=== PATIENT | male | born 1930 | race Caucasian/White ===

== ENCOUNTER 2016-03-24 11:35 | Observation (INO) ==
[2016-03-24] MEDS ORDERED: HYDROmorphone 2 MG/ML SYRINGE IV PRN (11:45)
[2016-03-24 13:18] LABS: Mean Cell Volume 97.8 fL (80.0-100.0); Mean Corpuscular HGB Conc 32.9 g/dL (31.0-36.0); Mean Corpuscular Hemoglobin 32.1 pg (26.0-34.0); Platelet Count 347 K/mcL (140-440); RBC 3.81 M/mcL (4.50-5.90); Red Cell Distribution Width 15.1 % (11.5-14.5)
[2016-03-24 13:36] LABS: C-Reactive Protein 1.8 mg/dl (0.0-0.8); Magnesium 1.9 mg/dL (1.6-2.5); Phosphorous 3.5 mg/dL (2.7-4.5)
[2016-03-24] MEDS: IPRATROPIUM/ALBUTEROL 3 ML AMPUL.NEB NEB SCH ×2 (13:37→18:12)
[2016-03-24] MEDS: 0.9 % SODIUM CHLORIDE 1,000 ML IV SCH (13:42)
[2016-03-24 13:43] LABS: ALT/SGPT 11 U/l (0-40); Albumin 3.5 gm/dL (3.2-5.2); Albumin/Globulin Ratio 2.1 (1.0-2.3); Alkaline Phosphatase 92 U/L (39-117); Blood Urea Nitrogen 24 mg/dl (8-23)
[2016-03-24] MEDS: 0.9 % SODIUM CHLORIDE 10 ML SYRINGE IV SCH ×2 (13:43→22:44)
[2016-03-24] MEDS ORDERED: ENOXAPARIN 40 MG/0.4 ML SYRINGE SQ SCH (14:00)
--- NOTE | 2016-03-24 14:14 | XRay Report ---
CLINICAL INFORMATION: COPD COMPARISON: 01/29/2016. FINDINGS: The heart is mildly enlarged, but unchanged. Ectatic thoracic aorta again noted. Remainder the mediastinum and pulmonary vessels are unremarkable. There is minor bibasilar atelectasis. Left diaphragm slightly elevated IMPRESSION: No acute disease - stable Interpreted and Authenticated by: Andre Bey 03/24/16
[2016-03-24] MEDS ORDERED: ENOXAPARIN 40 MG/0.4 ML SYRINGE SQ ONE (14:30)
[2016-03-24 15:10] LABS: Band Neutrophils % 1 % (0-10); Lymphocytes % 14 % (15-49); Monocytes % (Manual) 10 % (1-9); Platelet Estimate NORMAL (NORMAL); RBC Morphology NORMAL (NORMAL); Segmented Neutrophils % 75 % (38-78)
[2016-03-24] MEDS: SODIUM CHLORIDE 1 GM TABLET PO SCH (17:57)
[2016-03-24] MEDS: oxyCODONE HCL 5 MG TABLET PO PRN (19:28)
[2016-03-24] MEDS: TAMSULOSIN 0.4 MG CAPSULE PO SCH (19:30)
[2016-03-24] MEDS: DOCUSATE SODIUM 100 MG CAPSULE PO SCH (19:30)
[2016-03-25] MEDS: SODIUM CHLORIDE 1 GM TABLET PO SCH ×2 (00:42→06:05)
[2016-03-25] MEDS: IPRATROPIUM/ALBUTEROL 3 ML AMPUL.NEB NEB SCH ×5 (02:50→19:11)
[2016-03-25] MEDS: 0.9 % SODIUM CHLORIDE 1,000 ML IV SCH ×2 (02:51→14:26)
[2016-03-25] MEDS: 0.9 % SODIUM CHLORIDE 10 ML SYRINGE IV SCH ×2 (05:59→14:05)
[2016-03-25 06:09] LABS: Basophils # (Auto) 0 K/mcL (0.0-0.3); Basophils % (Auto) 0.3 % (0.0-2.0); Eosinophils # (Auto) 0.1 K/mcL (0.0-0.7); Eosinophils % (Auto) 1.4 % (0.0-7.0); Lymphocytes # (Auto) 1.2 K/mcL (1.5-4.8); Lymphocytes % (Auto) 16.3 % (15.5-49.0); Mean Cell Volume 98.6 fL (80.0-100.0); Mean Corpuscular HGB Conc 32.1 g/dL (31.0-36.0); Mean Corpuscular Hemoglobin 31.7 pg (26.0-34.0); Monocytes # (Auto) 0.5 K/mcL (0.1-0.9); Platelet Count 246 K/mcL (140-440); RBC 3.39 M/mcL (4.50-5.90); Red Cell Distribution Width 15.1 % (11.5-14.5)
[2016-03-25] MEDS: oxyCODONE HCL 5 MG TABLET PO PRN ×3 (06:09→21:29)
[2016-03-25 06:11] LABS: Appearance,Urine CLEAR; Bacteria,Urine 0 /hpf (0); Bilirubin,Urine NEG (NEG); Color,Urine YELLOW; Glucose,Urine (UA) NEGATIVE (NEG); Leukocyte Esterase,Urine 25 /uL (NEG); Mucus,Urine FEW /hpf (0); Nitrate,Urine NEG (NEG); Protein,Urine NEG (NEG); Specific Gravity,Urine 1.009 (1.000-1.035); Urine Blood 0.03 mg/dL (<0.03); Urine RBC 6 /hpf (0-1); Urine Squamous Epithelial Cell 0 /hpf (0-4); Urine WBC 3 /hpf (0-4); Urobilinogen,Urine NEG (NEG)
[2016-03-25 06:29] LABS: Blood Urea Nitrogen 17 mg/dl (8-23)
[2016-03-25] MEDS ORDERED: PANTOPRAZOLE 40 MG VIAL IV SCH (07:30)
[2016-03-25] MEDS ORDERED: cefTRIAXone 1 GM in DEXTROSE 5% IN WATER 50 ML IV ONE (08:00)
[2016-03-25] MEDS ORDERED: ASPIRIN 81 MG TAB.CHEW CHEWED SCH (09:00)
[2016-03-25] MEDS ORDERED: METOPROLOL TARTRATE 5 MG/5 ML VIAL IV ONE (13:55)
[2016-03-25] MEDS ORDERED: ePHEDrine 50 MG/ML AMPUL IV ONE (13:55)
[2016-03-25] MEDS ORDERED: fentaNYL 100 MCG/2 ML VIAL IV ONE (13:55)
[2016-03-25] MEDS ORDERED: KETAMINE 100 MG/ML ML IV ONE (13:55)
[2016-03-25] MEDS ORDERED: PHENYLEPHRINE 10 MG/ML VIAL IV ONE (13:55)
[2016-03-25] MEDS ORDERED: MIDAZOLAM 2 MG/2 ML VIAL IV ONE (13:55)
[2016-03-25] MEDS: DOCUSATE SODIUM 100 MG CAPSULE PO SCH ×2 (14:05→21:29)
[2016-03-25] MEDS: TAMSULOSIN 0.4 MG CAPSULE PO SCH ×2 (14:05→21:29)
[2016-03-25] MEDS ORDERED: fentaNYL 100 MCG/2 ML VIAL IV PRN (14:32)
[2016-03-25] MEDS ORDERED: FLUMAZENIL 0.1 MG/ML ML IV PRN (14:32)
[2016-03-25] MEDS ORDERED: METOPROLOL TARTRATE 5 MG/5 ML VIAL IV PRN (14:32)
[2016-03-25] MEDS ORDERED: NALOXONE HCL 0.4 MG/ML VIAL IV PRN (14:32)
[2016-03-25] MEDS ORDERED: IPRATROPIUM/ALBUTEROL 3 ML AMPUL.NEB NEB PRN (14:32)
[2016-03-25] MEDS ORDERED: ONDANSETRON 4 MG/2 ML VIAL IV PRN (14:32)
[2016-03-25] MEDS ORDERED: LACTATED RINGERS 250 ML IV PRN (14:32)
[2016-03-25] MEDS ORDERED: diphenhydrAMINE 50 MG/ML VIAL IV PRN (14:32)
[2016-03-25] MEDS ORDERED: BACITRACIN 50,000 UNIT VIAL IR ONE (14:41)
[2016-03-25] MEDS ORDERED: LACTATED RINGERS 1,000 ML IV SCH (14:45)
--- NOTE | 2016-03-25 16:05 | Brief Operative Note ---
Date of procedure: 03/25/16 Pre-op diagnosis: left inguinal hernia with partial colonic obstruction Post-op diagnosis: same Procedure: left inguinal hernia repair with mesh graft Grafts/Implants: Yes (SURGIMESH) Anesthesia: spinal Findings: LARGE HERNIA SAC WITH INDURATED AND EDEMATOUS SAC CONTAINING SEGMENT OF SIGMOID COLON Complications: none Surgeon: Leni Wright Estimated blood loss (cc): 10 Specimens Removed/Pathology: none sent Condition: stable Disposition: PACU
[2016-03-25] MEDS: HYDROmorphone 2 MG/ML SYRINGE IV PRN ×2 (16:54→19:32)
[2016-03-26] MEDS: IPRATROPIUM/ALBUTEROL 3 ML AMPUL.NEB NEB SCH ×4 (02:01→19:19)
[2016-03-26 06:17] LABS: Basophils # (Auto) 0 K/mcL (0.0-0.3); Basophils % (Auto) 0 % (0.0-2.0); Eosinophils # (Auto) 0 K/mcL (0.0-0.7); Eosinophils % (Auto) 0.2 % (0.0-7.0); Granulocytes % (Auto) 85.3 % (38.0-78.0); Lymphocytes # (Auto) 1.1 K/mcL (1.5-4.8); Lymphocytes % (Auto) 7.9 % (15.5-49.0); Mean Cell Volume 99.2 fL (80.0-100.0); Mean Corpuscular HGB Conc 32.3 g/dL (31.0-36.0); Monocytes # (Auto) 0.9 K/mcL (0.1-0.9); Monocytes % (Auto) 6.6 % (1.0-9.0); Platelet Count 250 K/mcL (140-440); RBC 3.67 M/mcL (4.50-5.90); Red Cell Distribution Width 15.2 % (11.5-14.5)
[2016-03-26 06:52] LABS: Blood Urea Nitrogen 17 mg/dl (8-23)
[2016-03-26] MEDS: PANTOPRAZOLE 40 MG VIAL IV SCH (07:06)
[2016-03-26] MEDS: oxyCODONE HCL 5 MG TABLET PO PRN ×3 (07:06→17:33)
[2016-03-26] MEDS: TAMSULOSIN 0.4 MG CAPSULE PO SCH ×2 (08:38→21:35)
[2016-03-26] MEDS: DOCUSATE SODIUM 100 MG CAPSULE PO SCH ×2 (08:38→21:35)
[2016-03-26] MEDS: ASPIRIN 81 MG TAB.CHEW CHEWED SCH (08:38)
--- NOTE | 2016-03-26 14:34 | General Surgery Progress Note ---
Subjective Patient reports: still having pain, tolerating liquids well, no flatus, no bowel movement, afebrile Narrative: Note initiated : 03/26/16 at 2:32 pm Service Date, if different from initiated Date: [] Patient: Rod Bermudez 85 y/o M admitted on 03/24/16 for Bowel Obstruction and Hernia. Chief Complaint: [PATIENT IS EXTREMELY WEAK AND CANNOT GET OUT OF BED WITHOUT 2 PERSON MAXIMAL ASSISTANCE. hE IS HAVING DIFFICULTY VOIDING. hE HAS MAJOR RESPIRATORY PROBLEMS BUT THIS WAS PRESENT PREADMISSION. hIS BLOOD PRESSURE IS ELEVATED AND WILL NEED TO BE MAXIMIZED BY REINSTITUTING HIS HOME MEDS. hE WILL ALSO NEED TO BE EVALUATED BY THERAPY. hE IS NOT SAFE FOR DISCHARGE AT THIS TIME.] Objective Temp Pulse Resp BP Pulse Ox 98.2 F 109 H 18 123/49 97 03/26/16 12:28 03/26/16 14:05 03/26/16 14:05 03/26/16 12:28 03/26/16 14:03 - Additional Data Intake & Output - Last 24 hours: Intake & Output 03/24/16 03/25/16 03/26/16 03/27/16 05:59 05:59 05:59 05:59 Intake Total 1106 / 1106 2150 / 2150 580 / 580 Output Total 3650 / 3650 1495 / 1495 275 / 275 Balance -2544 / -2544 655 / 655 305 / 305 Weight 183 lb 182 lb 8 oz 182 lb 8 oz - General physical appearance moderate distress, chronically ill - Eyes PERRL - Respiratory other (MODERATELY SEVERE RESPIRATORY INSUFFICIENCY WITH COARSE RHONCHI AND WHEEZES BILATERALLY. mAJOR TACHYPNEA WITH ANY MOVEMENT) - Cardiovascular Cardiovascular exam: Present: tachycardia (RESTING TACHYCARDIA WHICH EXACERBATES WITH MOVEMENT) - Abdomen soft, tender, bowel sounds, distended (DISTENDED ABDOMEN WITH HYPOACTIVE BOWEL SOUNDS; MILD LOWER ABDOMINAL TENDERNESS) - Genitourinary other (PENILE AND SCROTAL ECCHYMOSIS WITH SWELLINGDUE TO EXTENSIVE SURGERY) - Neurologic normal sensation - Psychiatric oriented to time, oriented to person, oriented to place, speech is normal, memory intact - Labs 03/26/16 04:10 03/26/16 04:10 Diabetes panel 03/26/16 Range/Units 04:10 Sodium 136 (133-145) mmol/L Potassium 3.9 (3.3-5.1) mmol/L Chloride 93 L (96-108) mmol/L Carbon Dioxide 31 H (22-30) mmol/L BUN 17 (8-23) mg/dl Creatinine 0.7 (0.7-1.2) mg/dl Glucose 155 H (70-105) mg/dL Calcium 8.4 L (8.6-10.4) mg/dl Calcium panel 03/26/16 Range/Units 04:10 Calcium 8.4 L (8.6-10.4) mg/dl Pituitary panel 03/26/16 Range/Units 04:10 Sodium 136 (133-145) mmol/L Potassium 3.9 (3.3-5.1) mmol/L Chloride 93 L (96-108) mmol/L Carbon Dioxide 31 H (22-30) mmol/L BUN 17 (8-23) mg/dl Creatinine 0.7 (0.7-1.2) mg/dl Glucose 155 H (70-105) mg/dL Calcium 8.4 L (8.6-10.4) mg/dl Adrenal panel 03/26/16 Range/Units 04:10 Sodium 136 (133-145) mmol/L Potassium 3.9 (3.3-5.1) mmol/L Chloride 93 L (96-108) mmol/L Carbon Dioxide 31 H (22-30) mmol/L BUN 17 (8-23) mg/dl Creatinine 0.7 (0.7-1.2) mg/dl Glucose 155 H (70-105) mg/dL Calcium 8.4 L (8.6-10.4) mg/dl Medical - PN: A/P - Time Spent With Patient Total time spent is greater than 50% in coordination of care (as documented) at patient's floor/unit and/or counseling patient: (1) COPD (chronic obstructive pulmonary disease) with acute bronchitis Status: Acute Current Visit: No (2) Left inguinal hernia Status: Acute Current Visit: No (3) Hypertension Status: Chronic Current Visit: No - Narrative A/P Narrative: WE WILL DELAY DISCHARGED TODAY wE'LL START ON ORAL ANTIHYPERTENSIVE MEDICATIONS wE'LL GET OUT OF BED WITHTHERAPIST ASSISTANCE wE'LL ALLOW HIM TO HAVE BEER ONCE DAILY SINCE HE DRINKS HEAVILY EVERY DAY fLOMAX THERAPY IS REINSTITUTED
[2016-03-27] MEDS: IPRATROPIUM/ALBUTEROL 3 ML AMPUL.NEB NEB SCH ×4 (00:33→18:59)
[2016-03-27] MEDS: oxyCODONE HCL 5 MG TABLET PO PRN ×3 (02:31→20:42)
[2016-03-27 07:21] LABS: Basophils # (Auto) 0 K/mcL (0.0-0.3); Basophils % (Auto) 0.3 % (0.0-2.0); Eosinophils # (Auto) 0.1 K/mcL (0.0-0.7); Eosinophils % (Auto) 1.2 % (0.0-7.0); Granulocytes % (Auto) 77.6 % (38.0-78.0); Lymphocytes # (Auto) 1.2 K/mcL (1.5-4.8); Lymphocytes % (Auto) 11.8 % (15.5-49.0); Mean Cell Volume 97.5 fL (80.0-100.0); Mean Corpuscular HGB Conc 33.1 g/dL (31.0-36.0); Mean Corpuscular Hemoglobin 32.2 pg (26.0-34.0); Monocytes # (Auto) 0.9 K/mcL (0.1-0.9); Monocytes % (Auto) 9.1 % (1.0-9.0); Platelet Count 232 K/mcL (140-440); RBC 3.19 M/mcL (4.50-5.90); Red Cell Distribution Width 15.4 % (11.5-14.5)
[2016-03-27] MEDS: PANTOPRAZOLE 40 MG VIAL IV SCH (07:31)
[2016-03-27 07:38] LABS: Blood Urea Nitrogen 21 mg/dl (8-23)
[2016-03-27] MEDS ORDERED: MAGNESIUM HYDROXIDE 30 ML ORAL.SUSP PO PRN (07:46)
[2016-03-27] MEDS ORDERED: BISACODYL 10 MG SUPP.RECT PR PRN (07:46)
[2016-03-27] MEDS ORDERED: FLEETS ADULT ENEMA PR PRN (07:46)
[2016-03-27] MEDS: TAMSULOSIN 0.4 MG CAPSULE PO SCH ×2 (08:26→20:42)
[2016-03-27] MEDS: FINASTERIDE 5 MG TABLET PO SCH (08:26)
[2016-03-27] MEDS: ASPIRIN 81 MG TAB.CHEW CHEWED SCH (08:26)
[2016-03-27] MEDS: LOSARTAN 50 MG TABLET PO SCH (08:26)
[2016-03-27] MEDS: DOCUSATE SODIUM 100 MG CAPSULE PO SCH ×2 (08:26→20:42)
--- NOTE | 2016-03-27 13:44 | General Surgery Progress Note ---
Subjective Patient reports: feels better, pain is less, flatus, bowel movement, diarrhea, afebrile Narrative: Note initiated : 03/27/16 at 1:41 pm Service Date, if different from initiated Date: [] Patient: Rod Bermudez 85 y/o M admitted on 03/24/16 for Bowel Obstruction and Hernia. Chief Complaint: patient is stable. He is back to baseline. He had difficulty voiding a Crawford catheter was inserted He has a problem with BPH and bladder outlet obstruction in the past. He has not had a bowel movement as yet but will be given milk of magnesia to assistwith evacuation. His respiratory status is at baseline and probably is not going to improve in the long-term.] Objective Temp Pulse Resp BP Pulse Ox 96.4 F L 104 H 20 110/68 97 03/27/16 11:29 03/27/16 11:29 03/27/16 11:29 03/27/16 11:29 03/27/16 13:41 - Additional Data Intake & Output - Last 24 hours: Intake & Output 03/25/16 03/26/16 03/27/16 03/28/16 05:59 05:59 05:59 05:59 Intake Total 1106 / 1106 2150 / 2150 1080 / 1080 Output Total 3650 / 3650 1495 / 1495 550 / 550 220 / 220 Balance -2544 / -2544 655 / 655 530 / 530 -220 / -220 Weight 183 lb 182 lb 8 oz 184 lb - Additional Exam patient is alert and aware. He answers questions appropriately. He does not appear to be in any respiratory distress Head and neck exams unremarkable Chest--decreased breath sounds with coarse rhonchi and wheezes Heart--regular rhythm no tachycardia Abdomen--nondistended active bowel sounds; no tenderness Operative site--moderate ecchymosis with extension into penis and testicle Extremities--no increased edema neurologic--no focal deficit - Labs 03/27/16 05:55 03/27/16 05:55 Diabetes panel 03/27/16 Range/Units 05:55 Sodium 131 L (133-145) mmol/L Potassium 3.5 (3.3-5.1) mmol/L Chloride 90 L (96-108) mmol/L Carbon Dioxide 34 H (22-30) mmol/L BUN 21 (8-23) mg/dl Creatinine 0.7 (0.7-1.2) mg/dl Glucose 125 H (70-105) mg/dL Calcium 8.5 L (8.6-10.4) mg/dl Calcium panel 03/27/16 Range/Units 05:55 Calcium 8.5 L (8.6-10.4) mg/dl Pituitary panel 03/27/16 Range/Units 05:55 Sodium 131 L (133-145) mmol/L Potassium 3.5 (3.3-5.1) mmol/L Chloride 90 L (96-108) mmol/L Carbon Dioxide 34 H (22-30) mmol/L BUN 21 (8-23) mg/dl Creatinine 0.7 (0.7-1.2) mg/dl Glucose 125 H (70-105) mg/dL Calcium 8.5 L (8.6-10.4) mg/dl Adrenal panel 03/27/16 Range/Units 05:55 Sodium 131 L (133-145) mmol/L Potassium 3.5 (3.3-5.1) mmol/L Chloride 90 L (96-108) mmol/L Carbon Dioxide 34 H (22-30) mmol/L BUN 21 (8-23) mg/dl Creatinine 0.7 (0.7-1.2) mg/dl Glucose 125 H (70-105) mg/dL Calcium 8.5 L (8.6-10.4) mg/dl Medical - PN: A/P - Time Spent With Patient Total time spent is greater than 50% in coordination of care (as documented) at patient's floor/unit and/or counseling patient: (1) COPD (chronic obstructive pulmonary disease) with acute bronchitis Status: Acute Assessment and plan: patient's respiratory status is at baseline. Will wait for discharge plan is to make disposition for discharge Current Visit: No (2) Left inguinal hernia Status: Acute Assessment and plan: patient is going well from an operative standpoint. His major difficulty is severe deconditioning and moderately severe respiratory insufficiency which is a long-term problem and appears to be at baseline Current Visit: No (3) Hypertension Status: Chronic Current Visit: No
[2016-03-27] MEDS ORDERED: MAGNESIUM HYDROXIDE 30 ML ORAL.SUSP PO SCH (14:00)
[2016-03-28] MEDS: IPRATROPIUM/ALBUTEROL 3 ML AMPUL.NEB NEB SCH ×3 (01:58→13:09)
[2016-03-28 06:04] LABS: Basophils # (Auto) 0 K/mcL (0.0-0.3); Basophils % (Auto) 0.3 % (0.0-2.0); Eosinophils # (Auto) 0.1 K/mcL (0.0-0.7); Eosinophils % (Auto) 1.6 % (0.0-7.0); Granulocytes % (Auto) 76.2 % (38.0-78.0); Lymphocytes # (Auto) 1.2 K/mcL (1.5-4.8); Lymphocytes % (Auto) 13.4 % (15.5-49.0); Mean Cell Volume 97.6 fL (80.0-100.0); Mean Corpuscular HGB Conc 33.3 g/dL (31.0-36.0); Mean Corpuscular Hemoglobin 32.5 pg (26.0-34.0); Monocytes # (Auto) 0.7 K/mcL (0.1-0.9); Monocytes % (Auto) 8.5 % (1.0-9.0); Platelet Count 235 K/mcL (140-440); RBC 3.07 M/mcL (4.50-5.90); Red Cell Distribution Width 14.9 % (11.5-14.5)
[2016-03-28 06:53] LABS: Blood Urea Nitrogen 22 mg/dl (8-23)
[2016-03-28] MEDS: PANTOPRAZOLE 40 MG VIAL IV SCH (07:45)
[2016-03-28] MEDS: ASPIRIN 81 MG TAB.CHEW CHEWED SCH (08:35)
[2016-03-28] MEDS: FINASTERIDE 5 MG TABLET PO SCH (08:35)
[2016-03-28] MEDS: oxyCODONE HCL 5 MG TABLET PO PRN (08:36)
[2016-03-28] MEDS: LOSARTAN 50 MG TABLET PO SCH (08:36)
[2016-03-28] MEDS: TAMSULOSIN 0.4 MG CAPSULE PO SCH (08:36)
[2016-03-28] MEDS: DOCUSATE SODIUM 100 MG CAPSULE PO SCH (08:36)
--- NOTE | 2016-03-28 13:25 | Discharge Summary ---
Providers - Providers Patient information: Note initiated : 03/28/16 at 1:23 pm Service Date, if different from initiated Date: [] Patient: Rod Bermudez 85 y/o M admitted on 03/24/16 for Bowel Obstruction and Hernia. Chief Complaint: [] Date of admission: 03/25/16 Discharge date: 03/28/16 Attending physician: Leni Wright Hospitalization Hospital course: 85-year-old male with history of large left inguinal hernia with a long segment of sigmoid colon. Patient was having episodes of partial colonic obstructio intermittent severe pain. He was admitted and had left inguinal hernia repair with mesh. He was severely debilitated and required hospitalization. He is presently back to baseline and is not having problems except for bladder outlet obstruction. He has an indwelling Crawford catheter. This will be left in for at least 1 week. He is stable for discharge at this time. Discharge diagnosis: left inguinal hernia with obstruction Secondary discharge diagnosis: chronic obstructive lung disease moderately severe Hypertension Reason for admission: recurrent left inguinal hernia repair and chronic obstructive lung disease Procedures: left inguinal hernia repair with mesh graft Exam Temp Pulse Resp BP Pulse Ox 97.1 F L 108 H 16 111/65 98 03/28/16 12:00 03/28/16 13:16 03/28/16 13:16 03/28/16 12:00 03/28/16 13:10 - Additional Findings the patient is clinically stable. He still has his baseline severe chronic obstructiv lung disease requiring supplemental oxygen. His lungs however are relatively clear. He has some swelling of the op site in the left inguinal area and scrotum but this is decreased over the past 24 hours. Discharge Plan - Patient/Caregiver Discharge Instructions Activity: as per physical therapy, increase activity as tolerated, wear oxygen at all times Diet: Regular Diet Additional Instructions: keep Tegaderm dressing on until he returns to the office. Patient is to have voiding trial at the retirement and if successful his Foleyan be removed in 1 week Office visit for evaluation in 3 weeks - Follow up Plan Follow up with: Leni Wright MD [Physician] - 04/07/16 9:45 am Disposition: Home, Self-Care Prognosis: Good Rehab Potential: Good I certify that the patient requires SNF services.: Yes Overall status at discharge: patient is progressing back to baseline Pending Studies Resuscitation Status Full Code Diet Regular Diet Start Fri Tevin 6 Dinner Albuterol/Ipratropium (Duoneb) 3 ml NEB Q6HRT [facility] Last Admin: 03/28/16 13:09 Dose: 3 ml Admin: 03/28/16 06:56 Dose: 3 ml Admin: 03/28/16 01:58 Dose: Admin: 03/27/16 18:59 Dose: 3 ml Admin: 03/27/16 13:41 Dose: 3 ml Admin: 03/27/16 07:06 Dose: 3 ml Admin: 03/27/16 00:33 Dose: 3 ml Admin: 03/26/16 19:19 Dose: 3 ml Admin: 03/26/16 14:02 Dose: 3 ml Admin: 03/26/16 07:28 Dose: 3 ml Admin: 03/26/16 02:01 Dose: Not Given Admin: 03/25/16 19:11 Dose: 3 ml Admin: 03/25/16 16:42 Dose: 3 ml Aspirin (Aspirin) 81 mg CHEWED DAILY [facility] Last Admin: 03/28/16 08:35 Dose: 81 mg Admin: 03/27/16 08:26 Dose: 81 mg Admin: 03/26/16 08:38 Dose: 81 mg Docusate Sodium (Colace) 100 mg PO BID [facility] Last Admin: 03/28/16 08:36 Dose: 100 mg Admin: 03/27/16 20:42 Dose: 100 mg Admin: 03/27/16 08:26 Dose: 100 mg Admin: 03/26/16 21:35 Dose: 100 mg Admin: 03/26/16 08:38 Dose: 100 mg Admin: 03/25/16 21:29 Dose: 100 mg Finasteride (Proscar) 5 mg PO QDAY [facility] Last Admin: 03/28/16 08:35 Dose: 5 mg Admin: 03/27/16 08:26 Dose: 5 mg Hydromorphone HCl (Dilaudid) 1 mg IV Q2HP PRN PRN Reason: Pain Last Admin: 03/25/16 19:32 Dose: 1 mg Admin: 03/25/16 16:54 Dose: 1 mg Losartan Potassium (Cozaar) 50 mg PO QDAY [facility] Last Admin: 03/28/16 08:36 Dose: 50 mg Admin: 03/27/16 08:26 Dose: 50 mg Oxycodone HCl (Roxicodone) 5 mg PO Q4HP PRN PRN Reason: Pain Last Admin: 03/28/16 08:36 Dose: 5 mg Admin: 03/27/16 20:42 Dose: 5 mg Admin: 03/27/16 08:26 Dose: 5 mg Admin: 03/27/16 02:31 Dose: 5 mg Admin: 03/26/16 17:33 Dose: 5 mg Admin: 03/26/16 12:04 Dose: 5 mg Admin: 03/26/16 07:06 Dose: 5 mg Admin: 03/25/16 21:29 Dose: 5 mg Admin: 03/25/16 18:05 Dose: 5 mg Pantoprazole Sodium (Protonix) 40 mg IV QAMAC [facility] Last Admin: 03/28/16 07:45 Dose: 40 mg Admin: 03/27/16 07:31 Dose: 40 mg Admin: 03/26/16 07:06 Dose: 40 mg Tamsulosin HCl (Flomax) 0.4 mg PO BID [facility] Last Admin: 03/28/16 08:36 Dose: 0.4 mg Admin: 03/27/16 20:42 Dose: 0.4 mg Admin: 03/27/16 08:26 Dose: 0.4 mg Admin: 03/26/16 21:35 Dose: 0.4 mg Admin: 03/26/16 08:38 Dose: 0.4 mg Admin: 03/25/16 21:29 Dose: 0.4 mg Shift Summary 03/28/16 02:31 Shift Summary by Bennett Lawrence Pt alert and oriented x4, VSS SaO2 <95% on 3.5L o2. Pt is up with assist of 1 using gait belt and FWW. C/O 6/10 pain early in the shift and pt received Roxicodone x1. Surgical site to left groin has some drainage noted, skin pink with some ecchymosis moving towards left hip. Scrotum and penis is 4+ edema and skin on scrotum is purple. Pt refuses ice states "Can't stand the pressure." Powder used as barrier. Pt has Crawford cath eliminating dark yellow urine. Fluids encouraged. Pt plans to DC to SNF ([facility]) pending Dr. romo. Will update further at bedside. Initialized on 03/28/16 02:31 - END OF NOTE
--- NOTE | 2016-03-31 14:30 | Operative Note ---
DATE OF OPERATION: 03/25/2016 PREOPERATIVE DIAGNOSIS: Left inguinal hernia with partial colonic obstruction. POSTOPERATIVE DIAGNOSIS: Left inguinal hernia with partial colonic obstruction. PROCEDURE: Left inguinal hernia repair with mesh graft. SURGEON: Leni Wright MD. FINDINGS: Large sac with induration and edematous sac containing a large segment of sigmoid colon. DESCRIPTION OF PROCEDURE: Under general anesthesia, the patient's abdomen, inguinal and perineal area were prepped and draped in the sterile field. A timeout procedure was carried out as per protocol. A curvilinear lower inguinal incision was made. There was edema in the subcutaneous fat. Subcutaneous fat was extended down to the aponeurosis. The aponeurosis was incised and a very large cord containing colon was encountered. It was gently evaluated and then pushed back into the peritoneum. There was edema of the cord. The cord was explored, and it contained very large hernia sac which was dissected back to the internal ring. It was invaginated. There was a very large hole in the internal ring, so two plugs were sutured together and placed in the internal ring. It was then sutured circumferentially with 0 Prolene. This gave good closure of the internal ring. Onlay patch was placed and sutured over the floor using running locking 2-0 Prolene. The aponeurosis was closed with 2-0 Monocryl. Subcutaneous tissue was closed in two layers with 2-0 Monocryl. [place] were used to close the skin. Dressing was placed. The patient tolerated the procedure well. He was awakened and transferred to the postanesthetic care unit in stable, satisfactory condition. LCS:[email or web address] Job ID: [id number] Doc ID: [id number] Leni Wright M.D.
== END 2016-03-28 14:36 ==
LOC: MEDSUR
PROVIDERS: ADMIT Family Medicine Adult Medicine; ATTEND Family Medicine Adult Medicine